=== PATIENT | male | born 1985 | race African-American/Black ===

== ENCOUNTER 2018-08-29 17:29 | Emergency (ER) | payer MEDICAID, OTHER ==
[~2018-08-29] VITALS: Ht 167.6 cm; Wt 92.0 kg
[~2018-08-29 17:29] MED LIST: PSEU1CAP; TYLENOL
[2018-08-29] MEDS ORDERED: KETOROLAC 60MG/2ML VIAL IM ONE (20:45)
[2018-08-29 21:04] VITALS: BP 142/93
== END 2018-08-29 21:00 | disposition home or self-care (01) ==
LOC: ER 17:29
DX: S39.012A Strain of muscle, fascia and tendon of lower back, initial encounter (principal); X58.XXXA Exposure to other specified factors, initial encounter; Y93.9 Activity, unspecified; Y92.9 Unspecified place or not applicable; R03.0 Elevated blood-pressure reading, without diagnosis of hypertension
CPT/HCPCS: 96372; 99283; J1885